=== PATIENT | male | born 1950 | race Two or more races ===

== ENCOUNTER → 2017-06-07 | Outpatient (CLI) | payer MEDICARE ==
--- NOTE | 2017-06-08 00:46 | Diagnostic Imaging Report ---
History: Pain in bilateral lower extremity. Comparison studies: Images of x-ray lumbar spine from 12/27/2012, report not available for comparison at the time of interpretation Technique: Sagittal , coronal and axial T2 , sagittal T1 and IR, axial PD and T2 FS. Intravenous contrast: None Findings: Number of lumbar vertebral bodies: 5. Alignment: Normal lordosis. No scoliosis. Soft tissues: T2 hyperintense cystic lesion approximately measures 1.7 cm in long axis in left renal parenchyma, is partially visualized. Paraspinal muscles: No signal abnormalities. Well-preserved. No atrophic changes Lower thoracic cord: Normal in signal and morphology. The tip of the conus is at L1 . Cauda equina: SubtleT1 hyperintensity within the cauda equina nerve root from level L2 to L3-L4 possibly represents fibrolipoma of filum terminale (image 8, series 4). Vertebrae: No compression fractures, infection or neoplasm. Degenerative changes: L1-L2: Mild degenerative disc disease. Disc bulge and thickened ligamentum flavum flavum effaces thecal sac without canal stenosis. No significant foraminal stenosis. Bilateral mild facet arthrosis. L2-L3: Mild degenerative disc disease. Disc bulge without canal stenosis. Mild bilateral facet arthrosis. No foraminal stenosis. L3-L4: Mild degenerative disc disease. Disc bulge and thickened ligamentum flavum without canal stenosis. No foraminal stenosis. Mild bilateral facet arthrosis. L4-L5: Mild degenerative disc disease and posterior annular fissure. Disc bulge and thickened ligamentum flavum effaces thecal sac without canal stenosis. Mild bilateral foraminal stenosis. Mild bilateral facet arthrosis. L5-S1: Mild degenerative disc disease. Disc bulge asymmetric to left without canal stenosis. No foraminal stenosis. Mild bilateral facet arthrosis. Visualized portion of bilateral sacroiliac joints: No significant abnormality. IMPRESSION: 1. Mild lumbar spondylosis without significant canal stenosis. 2. Mild bilateral foraminal stenosis at L4-L5. 3. Mild multilevel degenerative disc disease and facet arthrosis. 4. Incidental fibrolipoma filum terminale. Signed by: Dr. Rhonda Madden M.D. on 06/08/2017 12:43 AM
== END ==
LOC: MRI 09:14
PROVIDERS: ATTEND Family Medicine
DX: M54.16 Radiculopathy, lumbar region (principal)
CPT/HCPCS: 72148

== ENCOUNTER → 2019-04-15 | Outpatient (CLI) | payer MEDICARE ==
--- NOTE | 2019-04-15 11:26 | Diagnostic Imaging Report ---
EXAMINATION: CERVICAL SPINE 4 OR 5 VIEWS INDICATION: Cervical radiculopathy COMPARISON: None FINDINGS: AP lateral oblique and odontoid view images of the cervical spine were obtained. No acute fracture or dislocation. Grade 1 anterolisthesis at C4-5. Alignment is otherwise anatomic. Mild multilevel degenerative changes of the cervical spine with disc space narrowing and small osteophyte formation, most notably at C5-6. The prevertebral soft tissues are normal in thickness. IMPRESSION: No acute osseous injury. Grade 1 anterolisthesis at C4-5. Mild multilevel degenerative changes is notably at C5-6. Signed by: Florentino Obrien MD on 04/15/2019 11:24 AM
== END ==
LOC: RAD 10:35
PROVIDERS: ATTEND Family Medicine
DX: M54.12 Radiculopathy, cervical region (principal); J06.9 Acute upper respiratory infection, unspecified
CPT/HCPCS: 72050

== ENCOUNTER → 2020-03-13 | Outpatient (CLI) | payer MEDICARE | LOC: MRI 11:19 | PROVIDERS: ATTEND Family Medicine | DX: R42 Dizziness and giddiness (principal); I65.21 Occlusion and stenosis of right carotid artery | CPT/HCPCS: 70551; 93880 ==